=== PATIENT | female | born 1985 ===

== ENCOUNTER 2018-10-26 09:41 | Emergency (ER) | payer OTHER ==
[2018-10-26 09:49] VITALS: O2SAT 100
[2018-10-26 09:50] VITALS: BMI 38.1
[2018-10-26] MEDS ORDERED: Sodium Chloride 0.9% 1,000 ML IV STA (10:23)
--- NOTE | 2018-10-26 10:29 | ED PDOC ---
HPI: General Adult Time Seen by Provider: 10/26/18 10:01 Chief Complaint (Nursing): Flu-like Symptoms Chief Complaint (Provider): bodyaches History Per: Patient (32 y/o female here with bodyaches x 2 days. No fevers/chills/cough/dysuria. Was seen by [facility] and noted with urine infection. Sent home on Keflex. Notes mild rash on thighs unsure if this is from extrastrength tylenol orkeflex. Has taken PCN in past without difficulty.) Past Medical History Reviewed: Historical Data, Nursing Documentation, Vital Signs Vital Signs: Last Vital Signs Temp 100.2 F H 10/26/18 09:48 Pulse 101 H 10/26/18 09:48 Resp 16 10/26/18 09:48 BP 112/78 10/26/18 09:48 Pulse Ox 100 10/26/18 09:48 - Family History Family History: States: No Known Family Hx - Immunization History Hx Tetanus Toxoid Vaccination: No Hx Influenza Vaccination: Yes Hx Pneumococcal Vaccination: Yes - Home Medications Home Medications: Ambulatory Orders Medication Instructions Recorded Ketorolac Tromethamine [Toradol] 10 mg PO BID #10 tab 10/23/15 Ibuprofen [Motrin] 600 mg PO Q8 PRN #21 tab 10/26/18 Nitrofurantoin Macrocrystals 100 mg PO BID #14 cap 10/26/18 [Macrobid] Oseltamivir Cap [Tamiflu] 75 mg PO BID #9 cap 10/26/18 - Allergies Allergies/Adverse Reactions: Allergies Allergy/AdvReac Type Severity Reaction Status Date / Time No Known Allergies Allergy Verified 10/23/15 13:48 Review of Systems ROS Statement: Except As Marked, All Systems Reviewed And Found Negative Physical Exam - Reviewed Nursing Documentation Reviewed: Yes Vital Signs Reviewed: Yes - Physical Exam Appears: Positive for: Well, Non-toxic, No Acute Distress Head Exam: Positive for: ATRAUMATIC, NORMAL INSPECTION, NORMOCEPHALIC Skin: Positive for: Normal Color, Warm, DRY Eye Exam: Positive for: EOMI, Normal appearance, PERRL ENT: Positive for: Normal ENT Inspection Neck: Positive for: Normal, Painless ROM Cardiovascular/Chest: Positive for: Regular Rate, Rhythm Respiratory: Positive for: CNT, Normal Breath Sounds Gastrointestinal/Abdominal: Positive for: Normal Exam, Soft Back: Positive for: Normal Inspection Extremity: Positive for: Normal ROM Neurological/Psych: Positive for: Awake, Alert, Normal Tone - Laboratory Results Result Diagrams: 10/26/18 10:40 10/26/18 10:40 - ECG O2 Sat by Pulse Oximetry: 100 - Progress ED Course And Treament: INFLUENZA A/BNEG RAPID STREP NEG TAMIFLU 75MG X 1 DOSE URINE DIP WITH BLOOD NO LEUK/NITRATE. PATIENT WAS STARTED ON KEFLEX AT [facility] FOR UTI BUT BELIEVES SHE DEVELOPED RASH ON LEG FROM IT. WE WILL WRITE HER RX FOR MACROBID INSTEAD AND SEND URINE CX. Disposition - Clinical Impression Clinical Impression: Influenza-like symptoms - Patient ED Disposition Is Patient to be Admitted: No - Disposition Referrals: [facility] [Outside] Disposition: Routine/Home Disposition Time: 12:13 Condition: FAIR Prescriptions: Ibuprofen [Motrin] 600 mg PO Q8 PRN #21 tab PRN Reason: Pain, Severe (8-10) Nitrofurantoin Macrocrystals [Macrobid] 100 mg PO BID #14 cap Oseltamivir Cap [Tamiflu] 75 mg PO BID #9 cap Instructions: Flu, Adult (DC) Forms: [facility] ED School/Work Excuse Print Language: CZECH
[2018-10-26 10:54] LABS: BASO % 0.6 % (0.0-2.0); EOS # 0.1 K/uL (0.0-0.7); EOS % 1.7 % (0.0-4.0); HEMOGLOBIN 13.5 g/dL (12.0-16.0); LYMPH # 0.8 K/uL (1.0-4.3); LYMPH % 13.3 % (20.0-40.0); MEAN CELL VOLUME 90.2 fl (81.0-99.0); MEAN CORPUSCULAR HEMOGLOBIN 30.2 pg (27.0-31.0); MEAN CORPUSCULAR HGB CONC 33.5 g/dL (33.0-37.0); MEAN PLATELET VOLUME 8.8 fl (7.2-11.7); MONO # 0.4 K/uL (0.0-0.8); MONO % 5.8 % (0.0-10.0); NEUT % 78.6 % (50.0-75.0); RBC 4.46 Mil/uL (3.80-5.20); RED CELL DISTRIBUTION WIDTH 13.1 % (11.5-14.5); WHITE BLOOD COUNT 6.4 K/uL (4.8-10.8)
[2018-10-26 11:04] LABS: ALB/GLOB RATIO 1.2 (1.0-2.1); ALBUMIN 4.2 g/dL (3.5-5.0); ALT/SGPT 51 U/L (9-52); AST/SGOT 45 U/L (14-36); BLOOD UREA NITROGEN 11 mg/dl (7-17); GFR NON-AFRICAN AMERICAN > 60
[2018-10-26 13:02] LABS: SQUAMOUS EPITHIAL 2 /hpf (0-5); URINE BILIRUBIN NEGATIVE (NEGATIVE); URINE BLOOD MODERATE (NEGATIVE); URINE CLARITY SLIGHTY-CLOUDY (Clear); URINE COLOR YELLOW (YELLOW); URINE GLUCOSE (UA) NEG (NEGATIVE); URINE LEUKOCYTE ESTERASE NEG Leu/uL (Negative); URINE PROTEIN NEGATIVE (NEGATIVE); URINE UROBILINOGEN 0.2-1.0 mg/dL (0.2-1.0)
[2018-10-26 13:26] VITALS: BP 105/59; PULSE 92; RESP 12; TEMP 99.3
--- NOTE | 2018-10-26 18:28 | RAD ---
Date of service: 10/26/2018 HISTORY: fever/bodyaches COMPARISON: No prior. TECHNIQUE: Chest PA and lateral FINDINGS: LUNGS: No active pulmonary disease. PLEURA: No significant pleural effusion identified. No pneumothorax apparent. CARDIOVASCULAR: No aortic atherosclerotic calcification present. Normal cardiac size. No pulmonary vascular congestion. OSSEOUS STRUCTURES: No significant abnormalities. VISUALIZED UPPER ABDOMEN: Normal. OTHER FINDINGS: None. IMPRESSION: No active disease.
== END 2018-10-26 13:12 | disposition home or self-care (01) ==
LOC: H.ER 09:41
DX: J11.1 Influenza due to unidentified influenza virus with other respiratory manifestations (principal)
CPT/HCPCS: 71046; 80053; 81003; 81025; 85025; 87070; 87086; 87430; 87804; 96361; 96374; 99284; J1885; J7030

== ENCOUNTER 2018-10-28 14:21 | Emergency (ER) | payer OTHER ==
[2018-10-28 15:07] VITALS: BP 105/74; PULSE 86; RESP 18; TEMP 98.2; O2SAT 99; BMI 38.3
--- NOTE | 2018-10-28 15:46 | ED PDOC ---
History of Present Illness History of Present Illness: 32 y/o female with no significant PMHx presents to the ED for evaluation of flu- like symptoms. Patient states of developing generalized weakness and body aches on Sunday. Patient reports of being evaluated at [facility] in [place], [place] and was discharged home with a diagnosis of a UTI. Patient additionally reports of developing a fever while body aches and weakness have persisted on Sunday. Patient states she was discharged here and diagnosed with the flu and a prescription of Tamiflu. Patient denies any change in symptoms since Sunday and getting the influenza vaccination this year. Patient is complaint with Tamiflu medications. PMD: none provided HPI: Influenza Time Seen by Provider: 10/28/18 15:41 Chief Complaint: Flu-like Symptoms Chief Complaint (Provider): Flu-like Symptoms History Per: Patient Exam Limitations: no limitations Onset/Duration Of Symptoms: Days Past Medical History Reviewed: Historical Data, Nursing Documentation, Vital Signs Vital Signs: Last Vital Signs Temp 98.2 F 10/28/18 15:07 Pulse 86 10/28/18 15:07 Resp 18 10/28/18 15:07 BP 105/74 10/28/18 15:07 Pulse Ox 99 10/28/18 15:07 - Medical History PMH: No Chronic Diseases - Surgical History Surgical History: No Surg Hx - Family History Family History: States: Unknown Family Hx - Immunization History Hx Tetanus Toxoid Vaccination: No Hx Influenza Vaccination: No Hx Pneumococcal Vaccination: Yes - Home Medications Home Medications: Ambulatory Orders Medication Instructions Recorded Ketorolac Tromethamine [Toradol] 10 mg PO BID #10 tab 10/23/15 Ibuprofen [Motrin] 600 mg PO Q8 PRN #21 tab 10/26/18 Nitrofurantoin Macrocrystals 100 mg PO BID #14 cap 10/26/18 [Macrobid] Oseltamivir Cap [Tamiflu] 75 mg PO BID #9 cap 10/26/18 - Allergies Allergies/Adverse Reactions: Allergies Allergy/AdvReac Type Severity Reaction Status Date / Time No Known Allergies Allergy Verified 10/23/15 13:48 Review of Systems ROS Statement: Except As Marked, All Systems Reviewed And Found Negative Constitutional: Positive for: Fever, Weakness, Other (myalgia) Physical Exam - Reviewed Nursing Documentation Reviewed: Yes Vital Signs Reviewed: Yes - Physical Exam Appears: Positive for: No Acute Distress Head Exam: Positive for: ATRAUMATIC Skin: Positive for: Normal Color, Warm, Dry Eye Exam: Positive for: Normal appearance Neck: Positive for: Normal Cardiovascular/Chest: Positive for: Regular Rate, Rhythm. Negative for: Murmur Respiratory: Positive for: Normal Breath Sounds. Negative for: Respiratory Distress Extremity: Positive for: Normal ROM Neurological/Psych: Positive for: Awake, Alert, Oriented Medical Decision Making Medical Decision Making: Time: 1547 -- Patient advised to stay on Tamiflu medications as well as take Tylenol, chicken soupt and rest. Scribe Attestation: Documented by Asia De Luna, acting as a scribe Julissa Esteban PA-C. Provider Scribe Attestation: All medical record entries made by the Scribe were at my direction and personally dictated by me. I have reviewed the chart and agree that the record accurately reflects my personal performance of the history, physical exam, medical decision making, and the department course for this patient. I have also personally directed, reviewed, and agree with the discharge instructions and disposition. - ECG O2 Sat by Pulse Oximetry: 99 Disposition - Clinical Impression Clinical Impression: Influenza Doctor Will See Patient In The: Office Counseled Patient/Family Regarding: Diagnosis, Need For Followup - Disposition Referrals: [facility] [Outside] [facility] [Outside] Disposition: Routine/Home Disposition Time: 16:16 Condition: STABLE Additional Instructions: Continue taking prescriptions provided as directed REST FLUIDS Dayquil Nyquil Chicken Soup Instructions: Flu, Adult (DC), Flu Forms: [facility] (Tajik)
== END 2018-10-28 16:22 | disposition home or self-care (01) ==
LOC: H.ER 14:21
DX: J11.1 Influenza due to unidentified influenza virus with other respiratory manifestations (principal)